=== PATIENT | female | born 1975 ===

== ENCOUNTER 2017-01-01 17:25 | Emergency (ER) | payer SELFPAY ==
[2017-01-01 18:34] VITALS: BMI 28.3
[2017-01-01] MEDS ORDERED: Dextrose 5%/Lactated Ringer's 1,000 ML IV SCH (18:45)
[2017-01-01] MEDS ORDERED: Dextrose 5%/Lactated Ringer's 1,000 ML IV ONE (18:45)
[2017-01-01 19:00] LABS: BASO % 0.3 % (0.0-2.0); EOS # 0.1 K/uL (0.0-0.7); EOS % 1.2 % (0.0-4.0); HEMOGLOBIN 11.6 g/dL (11.0-16.0); LYMPH # 1.5 K/uL (1.0-4.3); LYMPH % 16.9 % (20.0-40.0); MEAN CELL VOLUME 98.6 fL (81.0-99.0); MEAN CORPUSCULAR HEMOGLOBIN 33.6 pg (27.0-31.0); MEAN CORPUSCULAR HGB CONC 34.1 g/dL (33.0-37.0); MEAN PLATELET VOLUME 8.7 fL (7.2-11.7); MONO # 0.6 K/uL (0.0-0.8); MONO % 7.2 % (0.0-10.0); NEUT # 6.6 K/uL (1.8-7.0); NEUT % 74.4 % (50.0-75.0); NRBC % 0.2 % (0.0-2.0); RBC 3.44 Mil/uL (3.80-5.20); RED CELL DISTRIBUTION WIDTH 13.3 % (11.5-14.5); WHITE BLOOD COUNT 8.8 K/uL (4.8-10.8)
[2017-01-01 19:07] LABS: SQUAMOUS EPITHIAL 8 /hpf (0-5); URINE BACTERIA OCC (<OCC); URINE BILIRUBIN NEGATIVE (NEGATIVE); URINE BLOOD 2+ (NEGATIVE); URINE CLARITY Hazy (Clear); URINE COLOR Yellow (YELLOW); URINE GLUCOSE (UA) NORMAL (Normal); URINE NITRATE NEGATIVE (NEGATIVE); URINE PROTEIN NEGATIVE (NEGATIVE); URINE UROBILINOGEN NORMAL mg/dL (0.2-1.0)
[2017-01-01 19:08] LABS: ALBUMIN 3.2 g/dL (3.5-5.0)
[2017-01-01 19:11] LABS: ALT/SGPT 26 U/L (9-52); AST/SGOT 18 U/L (14-36); BLOOD UREA NITROGEN 8 mg/dL (7-17); GFR AFRICAN-AMERICAN > 60; GFR NON-AFRICAN AMERICAN > 60
[2017-01-01 19:12] LABS: CALCIUM 8.6 mg/dl (8.6-10.4); LIPASE 53 U/L (23-300); URIC ACID 4.6 mg/dL (2.2-7.5)
[2017-01-01 19:13] LABS: URINE LEUKOCYTE ESTERASE 1+ Leu/uL (Negative)
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
== END 2017-01-01 19:56 | disposition home or self-care (01) ==
LOC: C.EROB 17:25 → EDBD 17:25 → C.EROB 19:56
DX: O26.892 Other specified pregnancy related conditions, second trimester (principal); E86.0 Dehydration; Z3A.26 26 weeks gestation of pregnancy
CPT/HCPCS: 80053; 81001; 83615; 83690; 84550; 85025; 99283; J7120